=== PATIENT | male | born 1955 | race Caucasian/White ===

== ENCOUNTER 2021-02-12 17:40 | Emergency (ER) | payer SELFPAY ==
[~2021-02-12] VITALS: Ht 172.7 cm; Wt 74.4 kg
[2021-02-12 17:43] VITALS: BP 150/79
== END 2021-02-12 20:20 | disposition left against medical advice (07) ==
LOC: M ED 17:40
DX: Z53.21 Procedure and treatment not carried out due to patient leaving prior to being seen by health care provider (principal)

== ENCOUNTER 2025-05-15 14:21 | Emergency (ER) | payer MEDICARE, SELFPAY ==
[~2025-05-15] VITALS: Ht 165.1 cm; Wt 68.6 kg
[2025-05-15 15:14] LABS: BASO # 0.1 10^3/uL (0.0-0.2); BASO % 0.5 % (0.0-1.0); EOS # 0.3 10^3/uL (0.0-0.5); EOS % 3.2 % (0.0-3.0); LYMPH # 0.7 10^3/uL (1.5-5.0); LYMPH % 6.8 % (24.0-44.0); MONO # 1.0 10^3/uL (0.0-0.8); MONO % 10.1 % (2.0-8.0); NEUTROPHILS # 8.0 10^3/uL (1.5-8.5); NEUTROPHILS % 79.1 % (36.0-66.0); PLATELET COUNT, AUTOMATED 263 10^3/uL (150-450)
[2025-05-15] MEDS: NS (Normal Saline) 0.9% 1,000 ML IV ONE (15:16)
[2025-05-15 15:36] LABS: KETONE, URINE AUTO RFX NEGATIVE (NEGATIVE); MUCUS, URINE RFX SMALL (NEGATIVE); RBC, URINE AUTO RFX 2 /HPF (0-3); SQUAM EPITHELIAL CELL UR AURFX 0 /HPF (0-6)
[2025-05-15 15:38] LABS: LEUKOCYTE ESTERASE UR AUTO RFX TRACE (NEGATIVE); NITRITE, URINE AUTO RFX POSITIVE (NEGATIVE); WBC, URINE AUTO RFX 30 /HPF (0-3)
[2025-05-15 15:40] LABS: CALCIUM LEVEL 8.6 MG/DL (8.3-10.6); CARBON DIOXIDE LEVEL 29.0 MMOL/L (20-31); CHLORIDE LEVEL 106.0 MMOL/L (98-107); CPK CREATINE PHOSPHOKINASE 52.0 U/L (46-171); CREATININE FOR GFR 1.0 MG/DL (0.70-1.30); GLOMERULAR FILTRATION RATE 82.0 (>49); MAGNESIUM LEVEL 1.6 MG/DL (1.8-2.4); POTASSIUM SERUM 4.1 MMOL/L (3.5-5.1); SODIUM LEVEL 143.0 MMOL/L (136-145)
[2025-05-15] MEDS ORDERED: DULA3PEN SQ (16:28)
[2025-05-15] MEDS ORDERED: CARB1TAB97 PO (16:28)
[2025-05-15] MEDS ORDERED: CARB25TA9 PO (16:28)
[2025-05-15] MEDS ORDERED: METO1TAB87 PO (16:28)
[2025-05-15] MEDS ORDERED: TRAD5TAB PO (16:30)
[2025-05-15] MEDS ORDERED: MED REC IN PROGRESS XX SCH (16:30)
[2025-05-15] MEDS: cefTRIAXone SOD 1 GM in DEXTROSE 5% (D5W) ADV/MINI-BAG 50 ML IV ONE (16:49)
[2025-05-15] MEDS: ACETAMINOPHEN 500 MG TAB PO ONE (17:20)
[2025-05-15] MEDS: MAG SULF 1GM/100ML (MAG RUN) 1 GM in IV 1 EA IV ONE (17:20)
[2025-05-15] MEDS: NS 500 ML IV ONE (17:21)
[2025-05-15] MEDS ORDERED: CEFD300CAP PO (20:31)
[2025-05-15 20:59] VITALS: BP 124/70; TEMP 96.6; O2SAT 99
== END 2025-05-15 21:00 | disposition home or self-care (01) ==
LOC: M ED 14:21
DX: N39.0 Urinary tract infection, site not specified (principal); E83.42 Hypomagnesemia; S83.92XA Sprain of unspecified site of left knee, initial encounter; M51.360 Other intervertebral disc degeneration, lumbar region with discogenic back pain only; Y92.019 Unspecified place in single-family (private) house as the place of occurrence of the external cause; Y93.9 Activity, unspecified; Y99.9 Unspecified external cause status; W01.0XXA Fall on same level from slipping, tripping and stumbling without subsequent striking against object, initial encounter; E11.9 Type 2 diabetes mellitus without complications; R00.0 Tachycardia, unspecified; Z79.2 Long term (current) use of antibiotics; Z79.4 Long term (current) use of insulin; Z79.899 Other long term (current) drug therapy
CPT/HCPCS: 36415; 72131; 73502; 73564; 80048; 81001; 82550; 83605; 83735; 84550; 85025; 87040; 87086; 93005; 93041; 96361; 96365; 96366; 99285; J0696; J3475